=== PATIENT | female | born 2000 | race Two or more races ===

== ENCOUNTER 2023-05-19 00:35 | Emergency (ER) | payer MEDICAID ==
[~2023-05-19] VITALS: Ht 170.2 cm; Wt 64.0 kg
[2023-05-19 00:38] VITALS: O2SAT 96
[2023-05-19] MEDS ORDERED: LORAZEPAM 2MG/ML CPJ IM STA (00:41)
[2023-05-19] MEDS ORDERED: HALOPERIDOL LACTATE 5MG/ML VIAL IM STA (00:41)
[2023-05-19 02:49] LABS: HEMATOCRIT. 36.2 % (36.0-48.0); HEMOGLOBIN. 11.9 g/dL (12.0-16.0); MEAN CORPUSCULAR HEMOGLOBIN 29.2 pg (28.0-32.0); MEAN CORPUSCULAR VOLUME 88.8 fL (81.0-99.0); MEAN PLATELET VOLUME 8.2 fl (7.4-10.4); PLATELET 258 x1000/uL (130-400); RED BLOOD CELL COUNT 4.07 mill/uL (4.2-5.4); RED CELL DISTRIBUTION WIDTH 14.9 % (11.6-14.6)
[2023-05-19 03:00] LABS: CHLORIDE 110 mEq/L (98-107)
[2023-05-19 03:08] LABS: ETHANOL BLOOD 17 mg/dL (-10)
[2023-05-19 04:47] LABS: PLATELET ESTIMATE NORMAL
[2023-05-19] MEDS ORDERED: KETOROLAC 15MG/ML VIAL IV ONE (06:45)
[2023-05-19 09:15] VITALS: BP 114/74; PULSE 79; RESP 18; TEMP 98.1
== END 2023-05-19 09:17 | disposition home or self-care (01) ==
LOC: EDBD 00:35 → ER 00:35
DX: F19.90 Other psychoactive substance use, unspecified, uncomplicated (principal)
CPT/HCPCS: 80053; 81025; 80320; 85025; 36415; 96372; 99291; J1630; J2060; G0480